=== PATIENT | male | born 1965 | race Caucasian/White ===

== ENCOUNTER 2017-09-17 13:47 | Emergency (ER) | payer OTHER ==
[2017-09-17 13:58] VITALS: BP 138/74; PULSE 90; BMI 30.2
[2017-09-17] MEDS ORDERED: diazePAM 5 MG TABLET PO ONE (15:19)
--- NOTE | 2017-09-17 15:19 | PDOC ---
History of Present Illness - General Chief Complaint: Back Pain Stated Complaint: back pain History Source: Patient Exam Limitations: No Limitations - History of Present Illness Initial Comments: 09/17/17 15:25 HPI: This 52 yr old male presented to ER with c/o lower back pain that he awoke with this AM. He states he had no problems yesterday or overnight and slept well until he got out of bed this AM. He states if he moves the wrong way it is pain that is sharp and runs down his right leg causing him to bend over in pain.e He did not take anything for it. His neighbor brought him in to ER Chief Compliant: Lumbar pain Pain location:lumber region Duration: several hours Modifying factors: movement makes it worse Quality:sharp Radiating:down right leg Severity:06/06 Time: bursts for several hours PMH: SANCHEZ (on pradaxa) FH: Pt has not recently traveled outside the country in the last 30 days. Pt has not been in contact with people who have traveled out of the country, in contact with people who have been ill with fever, n, v, d. SH: smoking use: NONE illicit drug use: NONE alcohol use: NONE employment/educational status: sits at a desk sexual history: PSH: none Home med use noted on OCT Allergies: niacin Immunizations: PCP: Past History - Past Medical History Allergies/Adverse Reactions: Allergies Allergy/AdvReac Type Severity Reaction Status Date / Time niacin Allergy Verified 09/17/17 13:54 Home Medications: Ambulatory Orders Digoxin [Lanoxin -] 0.125 mg PO DAILY 11/16/15 Metoprolol Succinate [Toprol Xl] 150 mg PO DAILY 11/16/15 Triamterene/Hydrochlorothiazid [Triamterene-Hctz 37.5-25 mg Tb] 1 tab PO DAILY 11/16/15 Amlodipine Besylate [Norvasc -] 2.5 mg PO DAILY 09/17/17 Atorvastatin Ca [Lipitor] 40 mg PO HS 09/17/17 Cyclobenzaprine HCl [Flexeril -] 5 mg PO BID #10 tablet 09/17/17 Hydrochlorothiazide [Hctz -] 25 mg PO DAILY 09/17/17 Ticagrelor [Brilinta] 90 mg PO ASDIR 09/17/17 Tramadol HCl 50 mg PO BID PRN 5 Days #10 tablet MDD 2 09/17/17 Cardiac Disorders: Yes (A-FIB) COPD: No HTN: Yes - Suicide/Smoking/Psychosocial Hx Smoking History: Never smoked Have you smoked in the past 12 months: No Information on smoking cessation initiated: No Hx Alcohol Use: No Drug/Substance Use Hx: No Substance Use Type: Alcohol Review of Systems - Review of Systems Able to Perform ROS?: Yes Comments:: 09/17/17 15:31 General statement: Hematology: neg history of bleeding/blood thinners Skin: Neg for lesions, rash, bruising. HEENT: Neg symptoms Respiratory: Neg SOB or difficulty in breathing Cardiac: Neg chest pain GI: Neg pain, n/v : Neg problems on voiding MS: lower back pain Neuro: Neg for LOC, weakness, Endocrine: Neg for excess thirst/hunger, cold/heat intolerance, excess sweating Allergies: niacin allergy *Physical Exam - Vital Signs Last Vital Signs Temp Pulse Resp BP Pulse Ox 90 13 138/74 100 09/17/17 13:56 09/17/17 13:56 09/17/17 13:56 09/17/17 13:56 - Physical Exam Comments: 09/17/17 15:32 General Appearance: This well appearing V/S: hemodynamically stable, afebrile Skin: WNL of pt's skin color, no signs of pallor, mottling, cyanosis Head:symmetrical Eyes: EOM's intact, PERRLA Ears: denies pain Nose: patent Throat: lips, teeth, gums, tongue, buccal mucos pink and moist Lungs: Chest symmetry equal. Cap refill <3 seconds. Lung sounds clear Cardiac: PMI at R 4MCL space, pos S1 and S2, regular rate. Abdomen: Soft, round, nontender : Not observed Muscularskeletal: ambulating in ER but with some distress with pain to lower back Neuro: AAOx3, cognitively intact, speech clear and appropriate. Medical Decision Making - Medical Decision Making 09/17/17 15:33 Pt seen with lower back pain and spasms without cause seen in ER. Pt medicated with muscle relaxants and pain meds Observed in ER 09/17/17 16:07 feeling better after treatment sent home with meds and rest *DC/Admit/Observation/Transfer Diagnosis at time of Disposition: Back pain with right-sided sciatica - Discharge Dispostion Disposition: HOME Condition at time of disposition: Stable Admit: No - Prescriptions Prescriptions: Cyclobenzaprine HCl [Flexeril -] 5 mg PO BID #10 tablet Tramadol HCl 50 mg PO BID PRN 5 Days #10 tablet MDD 2 PRN Reason: Back Pain - Referrals - Patient Instructions Additional Instructions: Discharge instructions 1. take meds starting tomorrow as needed for pain and spasm to lower back. 2. any sign of worsening symptoms return to ER immediately 3. Do not operate heavy [employer] or drive a car while on pain meds. 4. Follow up with your primary care physician in the next day or so for follow. 5. Do not bend, pull, or push using your back and use ice/heat - Post Discharge Activity
[2017-09-17] MEDS ORDERED: diazePAM 5 MG TABLET ONE (15:21)
[2017-09-17 17:05] VITALS: TEMP 98.4
== END 2017-09-17 16:22 | disposition home or self-care (01) ==
LOC: JERFT 13:47
DX: M54.41 Lumbago with sciatica, right side (principal); I10 Essential (primary) hypertension; I48.91 Unspecified atrial fibrillation
CPT/HCPCS: 99281-25